=== PATIENT | male | born 1970 | race Caucasian/White ===

== ENCOUNTER → 2018-06-17 | Day surgery (SDC) | payer BC ==
[2018-06-16 15:53] LABS: EOSINOPHILS % 0.2 % (0.0-6.0); HEMATOCRIT 33.6 % (38.2-49.6); HEMOGLOBIN 10.6 g/dL (14.0-18.0); LYMPHOCYTES # (AUTO) 1.1 (1.0-3.2); LYMPHOCYTES % 20.5 % (18.0-39.1); MEAN CORPUSCULAR HEMOGLOBIN 27.4 pg (28-32); MEAN CORPUSCULAR HGB CONC 31.5 g/dL (31-35); MEAN CORPUSCULAR VOLUME 86.8 fL (81-99); MONOCYTES # (AUTO) 0.4 (0.2-0.8); MONOCYTES % 7.1 % (4.4-11.3); NEUTROPHILS # (AUTO) 3.9 (2.1-6.9); NEUTROPHILS % 71.8 % (38.7-80.0); PLATELET COUNT 162 x10e3/uL (140-360); RED BLOOD COUNT 3.87 x10e6/uL (4.3-5.7); RED CELL DISTRIBUTION WIDTH 14.5 % (11.7-14.4)
[2018-06-16 16:12] LABS: ALBUMIN 3.7 g/dL (3.5-5.0); ALBUMIN/GLOBULIN RATIO 1.1 (0.8-2.0); ANION GAP 14.6 mmol/L (8-16); CALCIUM 9.2 mg/dL (8.4-10.2); CREATININE, SERUM 3.89 mg/dL (0.72-1.25)
[2018-06-16 16:18] LABS: POTASSIUM 5.6 mmol/L (3.5-5.1)
[~2018-06-17] VITALS: Ht 180.3 cm; Wt 105.7 kg
[2018-06-17] VITALS (9 sets, daily range): BP systolic 131–149; BP diastolic 70–89
[~2018-06-17] MED LIST: ALPRAZOLAM 0.5 MG TAB ONE; ASPIR 8181 MG PO; CALCIUM500 MG; CALTRATE 600 W1 EACH PO; CLONIDINE HCL0.2 MG PO; CRESTOR20 MG PO; DILTIAZEM 24HR300 M2; DIPHENHYDRAMINE HCL 25 MG CAP ONE; EDARBI40 MG PO; FENTANYL CITRATE/PF 100MCG/2 ML INJ ONE; GLIMEPIRIDE2 MG PO; HEPARIN SOD/SOD CHLORIDE 2,000 ML ONE; IOPAMIDOL 370 MG/ML 200 ML INFUS..BTL INJ ONE; ISOSORBIDE MONO30 MG PO; LIDOCAINE HCL 2% LOCAL 20 ML VIAL ONE; METOPROLOL TART50 MG PO; MIDAZOLAM HCL 2 MG/2 ML VIAL ONE; NEORAL25 MG PO; ONE-A-DAY MEN'1 EAC2 PO; PREDNISONE5 MG PO; RAPAMUNE1 MG PO; SODIUM CHLORIDE 0.9% 1000ML 1,000 ML ONE; TRILIPIX135 MG PO; TRILIPIX45 MG; VACEPA PO; VITAMIN B-12100 MCG
--- NOTE | 2018-06-17 12:06 | NUR ---
1206pm Received Ambulatory Prepped in Room #8. Identiferx2. #20 Iv started to left arm no s/s infiltration.Preop meds (0.5 Xanax and 50mg Benadryl po given . Bilateral femoral sites prepped. Baseline Vs and PPx4 marked. Denies c/o at this time.Family at bedside Side rail up and call light at bedside.Bed in low position.Report to labor relations consultant personal. ds/rn
--- OUTSIDE RECORDS SUMMARY | 2018-06-17 12:28 | XMS REPORT ---
Author Author [facility] Address Unknown Phone Unavailable Care Team Providers Care Log Hooker Name Role Phone Renny ORELLANA Unavailable Unavailable Problems This patient has no known problems. Allergies, Adverse Reactions, Alerts This patient has no known allergies or adverse reactions. Medications This patient has no known medications. Results Test Description Test Time Test Comments Text Results Atomic Results Result Comments TISSUE EXAM 2017-07-22 10:25:00 Surgical Pathology Report Case: [id number] Authorizing Provider: Jude Orellana MD Collected: 07/16/2017 1203 Ord ering Location: [facility] Radiology Angio Received: 07/16/2017 1203 Pathologist: Feng Lee MD Specimen: Kidney KIDNEY ALLOGRAFT, NEEDLE CORE BIOPSIES (S/P RENAL TRANSPLANT IN 2007)- NO EVIDENCE OF ACUTE T-CELL OR ANTIBODY MEDIATED REJECTION- C4D NEGATIVE IN PERITUBULAR CAPILLARIES- PATCHY (STRIPED) INTERSTITIAL FIBROSIS AND TUBULAR ATROPHY, MODERATE TO SEVERE (IFTA, ~60%)- DIFFUSE AND NODULAR ARTERIOLAR HYALINOSIS- MILD ARTERIAL INTIMAL SCLEROSIS- SEE COMMENT Signing Pathologist Direct Phone Line: [phone] signed by Feng Lee MD on 07/22/2017 at 10:25 AMPreliminary result electronically signed by Feng Lee MD on 07/20/2017 at 1:09 PMPreliminary result electronically signed by Feng Lee MD on 07/16/2017 at 3:16 PMThe histological features are secondary to hypertension or chronic calcineurin inhibitor toxicity. No histological features indicative of chronic antibody mediated rejection are noted in this biopsy. Updated results were communicated to on 07/20/2017.26313, 11989 x3, 47223, [id number] labs, status post kidney transplant 01/2008.Transplant kidney biopsy The specimen is received in three containers all labeled with the patient's information and "transplant kidney biopsy".In formalin are two light story cores of soft tissue measuring 0.5 cm and 2.0 cm in length, entirely submitted in cassette A1.In saline is a 1.1 cm in length light story core of soft tissue which is frozen and entirely submitted for immunofluorescent studies. In glutaraldehyde is a 0.3 cm in length white- story core of soft tissue which is entirely submitted for EM studies. DB/bc LIGHT MICROSCOPY: Sections show two cores of renal cortical tissue and one core of medullary tissue. Glomeruli: Approximately 23 glomeruli are examined of which 4 is globally sclerotic. The remaining glomeruli have patent capillary loops. Focal glomerular congestion is seen. No endocapillary hypercellularity, crescents or thrombi are seen. No double contours of glomerular basement membranes are noted on Hoover or PAS stain. Tubules and interstitium: There is patchy striped interstitial fibrosis and tubular atrophy with associated chronic interstitial inflammation, involving about 60% of renal cortex. No tubulitis or peritubular capillaritis is noted. No viral inclusions are seen. Vessels: Branches of interlobular arteries show mild intimal sclerosis. There is diffuse and nodular arteriolar hyalinosis. No endothelialitis or transmural vasculitis is seen. Special stains: Imelda trichrome, PAS and Hoover silver stains were necessary for evaluation of this biopsy and showed expected staining patterns of internal control tissue matrix structures.IMMUNOFLUORESCENCEHistology: H&E- stained sections show cortex with 12 non-sclerotic and one globally sclerosed glomerulus. Indirect srzwvtuksbmjjszwdpM3w is negative in peritubular capillaries (appropriate mesangial staining present)ELECTRON MICROSCOPYToluidine blue- stained sections reveal 2 non-sclerotic and one globally sclerosed glomerulus. Two glomeruli are examined ultrastructurally.Ultrastructure: Examination of the glomerular ultrastructure reveals that the glomerular basement membrane is of normal thickness. No double contours are seen. The mesangial matrix is not expanded. Subendothelial, subepithelial, and mesangial/paramesangial electron-dense, immune complex-type deposits are not present. Podocyte foot processes are segmentally effaced. The peritubular capillaries show normal lamellations of 1-3 layers thick. U/S, BIOPSY, RENAL (KIDNEY) 2017-07-16 12:04:00 Reason for Exam:->Other specified abnormal findings of blood chemistry [R79.89] FINAL REPORT PROCEDURE: Ultrasound-guided nonfocal biopsy of transplant kidney. INDICATION: 47-year-old man with elevated creatinine. COMPARISON: Renal transplant ultrasound 03/13/2008. SEDATION: Intravenous moderate sedation was administered by radiology nursing and monitored under the direction of the undersigned radiologist. The patient's vital signs were monitored throughout the procedure and recorded in the patient's medical record by radiology nursing. Total intraservice time of sedation was 15 minutes. MEDICATIONS: 1 mg Versed, 50 mcg fentanyl FINDINGS:After obtaining informed written consent, the patient was placed in the supine position, and ultrasound scan identified an accessible window to the transplant kidney in the right lower quadrant. The overlying skin was prepped and draped in the usual, sterile fashion and local 1% lidocaine anesthesia was administered. Two core biopsies of the kidney were obtained using 18-gauge Biopince biopsy needle under ultrasound guidance. Pathology was present to confirm sample adequacy. Post procedure scans revealed no immediate complications. IMPRESSION: Uncomplicated ultrasound-guided nonfocal biopsy of the transplant kidney. Signed: Amy Pang MDReport Verified Date/Time: 07/16/2017 12:04:50 Reading Location: [address] Ultrasound Reading Room C METABOLIC PANEL 2017-07-16 09:53:00 SODIUM (BEAKER) (test wtzi=886) 142 meq/L 136-145 POTASSIUM (BEAKER) (test vuug=123) 4.6 meq/L 3.5-5.1 CHLORIDE (BEAKER) (test oalu=056) 109 meq/L 98-107 CO2 (BEAKER) (test pprb=448) 22 meq/L 22-29 BLOOD UREA NITROGEN (BEAKER) (test wzme=366) 33 mg/dL 7-21 CREATININE (BEAKER) (test woxk=582) 2.32 mg/dL 0.57-1.25 GLUCOSE RANDOM (BEAKER) (test mvst=749) 185 mg/dL 70-105 CALCIUM (BEAKER) (test igkt=587) 9.3 mg/dL 8.4-10.2 EGFR (BEAKER) (test qfzl=0897) 30 mL/min/1.73 sq m ESTIMATED GFR IS NOT ACCURATE CREATININE CLEARANCE IN PREDICTING GLOMERULAR FILTRATION RATE. ESTIMATED GFR IS NOT APPLICABLE FOR DIALYSIS PATIENTS. PROTHROMBIN TIME/[id number] 09:41:00* Test Item Value Reference Range Comments PROTIME (BEAKER) (test npwd=553) 14.5 seconds 11.7-14.7 INR (BEAKER) (test qqkz=025) 1.1 <=5.9 RECOMMENDED COUMADIN/WARFARIN INR THERAPY RANGESSTANDARD DOSE: 2.0 - 3.0 Inclu kadi: PROPHYLAXIS for venous thrombosis, systemic embolization; TREATMENT for mery ous thrombosis and/or pulmonary embolus.HIGH RISK: Target INR is 2.5-3.5 for pat ients with mechanical heart valves.CBC W/PLT COUNT & AUTO [id number] 09:33:00* Test Item Value Reference Range Comments WHITE BLOOD CELL COUNT (BEAKER) (test aqwz=129) 7.9 K/ L 3.5-10.5 RED BLOOD CELL COUNT (BEAKER) (test oigw=902) 4.32 M/ L 4.63-6.08 HEMOGLOBIN (BEAKER) (test qyvb=058) 12.2 GM/DL 13.7-17.5 HEMATOCRIT (BEAKER) (test crxr=397) 37.6 % 40.1-51.0 MEAN CORPUSCULAR VOLUME (BEAKER) (test rauc=371) 87.0 fL 79.0-92.2 MEAN CORPUSCULAR HEMOGLOBIN (BEAKER) (test vcgx=743) 28.2 pg 25.7-32.2 MEAN CORPUSCULAR HEMOGLOBIN CONC (BEAKER) (test kxbw=328) 32.4 GM/DL 32.3-36.5 RED CELL DISTRIBUTION WIDTH (BEAKER) (test nloq=498) 13.4 % 11.6-14.4 PLATELET COUNT (BEAKER) (test uigk=635) 161 K/CU MM 150-450 MEAN PLATELET VOLUME (BEAKER) (test brvf=542) 10.6 fL 9.4-12.4 NUCLEATED RED BLOOD CELLS (BEAKER) (test ccja=576) 0 /100 WBC 0-0 NEUTROPHILS RELATIVE PERCENT (BEAKER) (test yoeo=537) 63 % LYMPHOCYTES RELATIVE PERCENT (BEAKER) (test gxjo=333) 26 % MONOCYTES RELATIVE PERCENT (BEAKER) (test rmqn=280) 10 % EOSINOPHILS RELATIVE PERCENT (BEAKER) (test bdge=139) 1 % BASOPHILS RELATIVE PERCENT (BEAKER) (test splo=333) 0 % NEUTROPHILS ABSOLUTE COUNT (BEAKER) (test tsmk=875) 4.96 K/ L 1.78-5.38 LYMPHOCYTES ABSOLUTE COUNT (BEAKER) (test kryd=219) 2.02 K/ L 1.32-3.57 MONOCYTES ABSOLUTE COUNT (BEAKER) (test tivr=924) 0.76 K/ L 0.30-0.82 EOSINOPHILS ABSOLUTE COUNT (BEAKER) (test spli=931) 0.09 K/ L 0.04-0.54 BASOPHILS ABSOLUTE COUNT (BEAKER) (test rxnj=164) 0.01 K/ L 0.01-0.08 IMMATURE GRANULOCYTES-RELATIVE PERCENT (BEAKER) (test spea=8774) 1 % 0-1
--- OUTSIDE RECORDS SUMMARY | 2018-06-17 12:28 | XMS REPORT | Clinical Summary ---
Author Author [facility] Address Unknown Phone Unavailable Care Team Providers Care Automatic Machine Attendant Name Role Phone Feliciano Yancey PCP Allergies No Known Allergies Medications End Date Status Medication Sig Dispensed Refills Start Date Active cycloSPORINE modified Take 100 mg 0 (NEORAL) 100 MG capsule by mouth 2 (two) times daily. Active sirolimus (RAPAMUNE) 2 MG Take 2 mg by 0 tablet mouth daily. Active predniSONE (DELTASONE) 5 Take 5 mg by 0 MG tablet mouth daily. Active ranolazine (RANEXA) 500 Take 500 mg 0 MG 12 hr tablet by mouth 2 (two) times daily. Active cloNIDine HCl (CATAPRES) Take 0.2 mg 0 0.2 MG tablet by mouth 2 (two) times daily. Active metoprolol (LOPRESSOR) 50 Take 50 mg by 0 MG tablet mouth 2 (two) times daily. Active fenofibric acid, choline, Take 135 mg 0 135 mg capsule by mouth daily. Active rosuvastatin (CRESTOR) 40 Take 40 mg by 0 MG tablet mouth daily. Active isosorbide dinitrate Take 30 mg by 0 (ISORDIL) 30 MG tablet mouth daily. Active multivitamin capsule Take 1 0 capsule by mouth daily. Active cholecalciferol (VITAMIN Take 1,000 0 D3) 400 unit Tab tablet Units by mouth daily. Active aspirin 81 MG EC tablet Take 81 mg by 0 mouth daily. Active azilsartan medoxomil Take 40 mg by 0 (EDARBI) 40 mg Tab mouth daily. Active Problems Not on file Encounters Care Team Description Date Type Specialty Jude Cervantes MD Other specified abnormal findings of blood chemistry 07/16/2017 Hospital Encounter Jude Cervantes MD Other specified abnormal findings of blood chemistry (Primary Dx) 07/14/2017 Outside Orders Central Scheduling after 06/16/2017 Social History Date Tobacco Use Types Packs/Day Years Used Former Smoker Smokeless Tobacco: Never Used Alcohol Use Drinks/Week oz/Week Comments No Sex Assigned at Date Recorded Not on file Industry Job Start Date Occupation Not on file Not on file Not on file Travel End Travel History Travel Start No recent travel history available. Last Filed Vital Signs Time Taken Vital Sign Reading 07/16/2017 5:00 PM CDT Blood Pressure 142/86 07/16/2017 5:00 PM CDT Pulse 59 07/16/2017 10:55 AM CDT Temperature 36.3 C (97.4 F) 07/16/2017 5:00 PM CDT Respiratory Rate 16 07/16/2017 12:15 PM CDT Oxygen Saturation 98% - Inhaled Oxygen - Concentration 07/16/2017 9:39 AM CDT Weight 89.8 kg (197 lb 14.4 oz) 07/16/2017 9:39 AM CDT Height 175.3 cm (5' 9") 07/16/2017 9:39 AM CDT Body Mass Index 29.22 Plan of Treatment Health Maintenance Due Date Last Done Comments INFLUENZA VACCINE 01/03/2018 Procedures Comments Procedure Name Priority Date/Time Associated Diagnosis TISSUE EXAM AP Routine 07/16/2017 12:03 PM CDT US RENAL BIOPSY Routine 07/16/2017 Other specified abnormal 11:54 AM CDT findings of blood chemistry CBC W/PLT COUNT & AUTO STAT 07/16/2017 DIFFERENTIAL 9:17 AM CDT BASIC METABOLIC PANEL (7) STAT 07/16/2017 9:17 AM CDT CBC W/PLT COUNT & AUTO STAT 07/16/2017 DIFFERENTIAL 9:17 AM CDT PROTHROMBIN TIME/INR STAT 07/16/2017 9:17 AM CDT after 06/16/2017 Results * Tissue Exam (07/16/2017 12:03 PM CDT) Case Report Surgical Pathology [facility] Case: [id number] Authorizing Provider:Jude Cervantes, MDCollected: 07/16/2017 1203 Ordering Location: [facility] Radiology AngioReceived: 07/16/2017 1203 Pathologist: Feng Lee MD Specimen:Kidney DIAGNOSIS KIDNEY ALLOGRAFT, NEEDLE CORE [facility] BIOPSIES (S/P RENAL TRANSPLANT [facility] IN 2007) - NO EVIDENCE OF ACUTE T-CELL OR ANTIBODY MEDIATED REJECTION - C4D NEGATIVE IN PERITUBULAR CAPILLARIES - PATCHY (STRIPED) INTERSTITIAL FIBROSIS AND TUBULAR ATROPHY, MODERATE TO SEVERE (IFTA, ~60%) - DIFFUSE AND NODULAR ARTERIOLAR HYALINOSIS - MILD ARTERIAL INTIMAL SCLEROSIS - SEE COMMENT Signing Pathologist Direct Phone Line: [phone] COMMENT The histological features are [facility] secondary to hypertension or [facility] chronic calcineurin inhibitor toxicity. No histological features indicative of chronic antibody mediated rejection are noted in this biopsy. Updated results were communicated to on 07/20/2017. CPT Code(s) 51241, 38004 x3, 40779, 48076 [facility] CLINICAL HISTORY Abnormal labs, status post [facility] kidney transplant 01/2008. [facility] SPECIMEN SOURCE Transplant kidney biopsy [facility] GROSS DESCRIPTION The specimen is received in [facility] three containers all labeled [facility] with the patient's information and "transplant kidney biopsy". In formalin are two light story cores of soft tissue measuring 0.5 cm and 2.0 cm in length, entirely submitted in cassette A1. In saline is a 1.1 cm in length light story core of soft tissue which is frozen and entirely submitted for immunofluorescent studies. In glutaraldehyde is a 0.3 cm in length white-story core of soft tissue which is entirely submitted for EM studies. DB/bc MICROSCOPIC DESCRIPTION LIGHT MICROSCOPY: [facility] Sections show two cores of [facility] renal cortical tissue and one core of [...] staining patterns of internal control tissue matrix structures. IMMUNOFLUORESCENCE Histology: H&E-stained sections show cortex with 12 non-sclerotic and one globally sclerosed glomerulus. Indirect immunofluorescence C4d is negative in peritubular capillaries (appropriate mesangial staining present) ELECTRON MICROSCOPY Toluidine blue- stained sections reveal 2 non-sclerotic and one globally sclerosed glomerulus. Two glomeruli are examined ultrastructurally. Ultrastructure: Examination of the glomerular ultrastructure reveals that the glomerular basement membrane is of normal thickness. No double contours are seen. The mesangial matrix is not expanded. Subendothelial, subepithelial, and mesangial/paramesangial electron-dense, immune complex-type deposits are not present. Podocyte foot processes are segmentally effaced. The peritubular capillaries show normal lamellations of 1-3 layers thick. Specimen Tissue - Kidney Performing Organization Address City/State/Zipcode Phone Number [facility] [address] [place] [address] [facility] * Renal Biopsy (07/16/2017 11:54 AM CDT) Narrative Performed At FINAL REPORT epacube PROCEDURE: Ultrasound-guided nonfocal biopsy of transplant kidney. [...] MEDICATIONS: 1 mg Versed, 50 mcg fentanyl FINDINGS: After obtaining informed written consent, the patient was [...] of the transplant kidney. Signed: Amy Pang MD Report Verified Date/Time:07/16/2017 12:04:50 Reading Location: [address] Ultrasound Reading Room Procedure Note Interface, External Ris In - 07/16/2017 12:07 PM CDT FINAL REPORT PROCEDURE: Ultrasound-guided nonfocal biopsy of [...] MEDICATIONS: 1 mg Versed, 50 mcg fentanyl FINDINGS: After obtaining informed written consent, the patient was [...] of the transplant kidney. Signed: Amy Pang MD Report Verified Date/Time: 07/16/2017 12:04:50 Reading Location: [address] Ultrasound Reading Room Performing Organization Address City/State/Zipcode Phone Number [facility] * CBC with platelet count + automated diff (07/16/2017 9:17 AM CDT) WBC 7.9 3.5 - 10.5 K/L [facility] RBC 4.32 (L) 4.63 - 6.08 M/L [facility] Hemoglobin 12.2 (L) 13.7 - 17.5 GM/DL [facility] Hematocrit 37.6 (L) 40.1 - 51.0 % [facility] MCV 87.0 79.0 - 92.2 fL [facility] MCH 28.2 25.7 - 32.2 pg [facility] MCHC 32.4 32.3 - 36.5 GM/DL [facility] RDW 13.4 11.6 - 14.4 % [facility] Platelets 161 150 - 450 K/CU MM [facility] MPV 10.6 9.4 - 12.4 fL [facility] nRBC 0 0 - 0 /100 WBC [facility] % Neutros 63 % [facility] % Lymphs 26 % [facility] % Monos 10 % [facility] % Eos 1 % [facility] % Baso 0 % [facility] # Neutros 4.96 1.78 - 5.38 K/L [facility] # Lymphs 2.02 1.32 - 3.57 K/L [facility] # Monos 0.76 0.30 - 0.82 K/L [facility] # Eos 0.09 0.04 - 0.54 K/L [facility] # Baso 0.01 0.01 - 0.08 K/L [facility] Immature 1 0 - 1 % [facility] Granulocytes-[facility] Specimen Blood Performing Organization Address City/State/Zipcode Phone Number [facility] [address] [place] [address] [facility] * Prothrombin time/INR (07/16/2017 9:17 AM CDT) Protime 14.5 11.7 - 14.7 seconds [facility] INR 1.1 <=5.9 [facility] Specimen Blood Narrative Performed At RECOMMENDED COUMADIN/WARFARIN INR THERAPY RANGES [facility] STANDARD DOSE: 2.0 - 3.0 Includes: PROPHYLAXIS for venous thrombosis, [facility] systemic embolization; TREATMENT for venous thrombosis and/or pulmonary embolus. HIGH RISK: Target INR is 2.5-3.5 for patients with mechanical heart valves. Performing Organization Address City/State/Rustcode Phone Number [facility] [address] [place] [address] [facility] * Basic Metabolic Panel (07/16/2017 9:17 AM CDT) Sodium 142 136 - 145 meq/L [facility] Potassium 4.6 3.5 - 5.1 meq/L [facility] Chloride 109 (H) 98 - 107 meq/L [facility] CO2 22 22 - 29 meq/L [facility] BUN 33 (H) 7 - 21 mg/dL [facility] Creatinine 2.32 (H) 0.57 - 1.25 mg/dL [facility] Glucose 185 (H) 70 - 105 mg/dL [facility] Calcium 9.3 8.4 - 10.2 mg/dL [facility] EGFR 30Comment: ESTIMATED GFR IS mL/min/1.73 sq m [facility] NOT ACCURATE CREATININE [facility] CLEARANCE IN PREDICTING GLOMERULAR FILTRATION RATE. ESTIMATED GFR IS NOT APPLICABLE FOR DIALYSIS PATIENTS. Specimen Blood Performing Organization Address City/[facility]/Zipcode Phone Number [facility] [address] [place] [address] [facility] after 06/16/2017 Insurance Payer Benefit Subscriber ID Type Phone Address Plan / Group BLUE [employer] OS xxxxxxxxxxxx PPO [phone] [address] POS/PP[place] [address] O Advance Directives Patient has advance care planning documents, and code status on file. For more i nformation, please contact: [facility] [address] [place] [phone] Date Inactivated Comments Code Status Date Activated 07/16/2017 7:30 PM Full Code 07/16/2017 12:10 PM This code status was determined by: Patient
--- NOTE | 2018-06-17 17:00 | NUR ---
1700pm Received pt to Product Test Engineer recovery RM #10. [facility] Dr Clark ,Drowsy easily aroused. Maintains airway on room air Sats 100% no gross issues of pallor,pressure or dysrhythmia or pain. Iv infusing via controller at 250cchr for total 500cc to be infused. No s/s infiltration. Abdomen soft and non tender denies necessity to defecate or urinate. Bilateral PPx4 PT/DP.Rt groin site w/o CDI w/o s/s of bleeding. Tamika at bedside. Cell [phone]. Plan of care discussed with family. Copy of dc instructions given to family Denies co CP or SOB. ds/rn
--- NOTE | 2018-06-17 19:00 | NUR ---
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 Patient has discharge instructions aware of importance of f/o care. Iv removed w/o s/s infiltration Coban dressing in place. Denies c/o chest pain or SOB vs stable and EKG. ds/rn
--- NOTE | 2018-06-18 00:13 | Operative Report ---
DATE OF PROCEDURE: 06/17/2018 SURGEON: Jay Clark MD INDICATION: Coronary artery disease, abnormal stress test. PROCEDURES PERFORMED: 1. Left heart catheterization, selective coronary angiography. 2. Deployment of right groin Vascade closure device. COMPLICATIONS: None. RECOMMENDATIONS: Medical therapy. DESCRIPTION OF PROCEDURE: Access was obtained in the right femoral artery. A 6-Nicar[place]uan sheath was placed. Diagnostic coronary angiogram revealed patent left main, left anterior descending, and circumflex arteries had hipb-hm-xlgndegu 30%-50% stenosis. Diagonal artery 80% stenosis, 1.5-mm vessel. Right coronary artery is completely occluded. Grade 3/4 collaterals filled the right posterior descending artery from the left coronary system. LV end-diastolic pressure of 18. No gradient across the aortic valve on pullback. No intervention is deemed necessary. A total of 12 mL of contrast used. The right groin was repaired using Vascade closure device. The patient is discharged home on the same day. Jay Clark MD KSB/MODL /[id number]
== END | disposition home or self-care (01) ==
LOC: CATH LAB 12:10
PROVIDERS: ATTEND Internal Medicine Interventional Cardiology
DX: I25.119 Atherosclerotic heart disease of native coronary artery with unspecified angina pectoris (principal); I25.82 Chronic total occlusion of coronary artery; R94.39 Abnormal result of other cardiovascular function study; E11.22 Type 2 diabetes mellitus with diabetic chronic kidney disease; I13.0 Hypertensive heart and chronic kidney disease with heart failure and stage 1 through stage 4 chronic kidney disease, or unspecified chronic kidney disease; I50.9 Heart failure, unspecified; N18.3 Chronic kidney disease, stage 3 (moderate); R60.0 Localized edema; Z01.812 Encounter for preprocedural laboratory examination; Z68.32 Body mass index [BMI] 32.0-32.9, adult; Z94.0 Kidney transplant status; Z87.891 Personal history of nicotine dependence; Z82.49 Family history of ischemic heart disease and other diseases of the circulatory system; Z84.1 Family history of disorders of kidney and ureter
CPT/HCPCS: 36415 ×2; 80053; 82948; 85025; 93458; C1760; C1769; J2001; J2250; J7030; Q9967; 93454

== ENCOUNTER 2019-01-29 03:03 | Observation (INO) | payer BC ==
[~2019-01-29] VITALS: Ht 180.3 cm; Wt 93.5 kg
[2019-01-29] VITALS (8 sets, daily range): BP systolic 95–146; BP diastolic 51–96
[~2019-01-29 03:03] MED LIST changes: -ALPRAZOLAM 0.5 MG TAB ONE; -DIPHENHYDRAMINE HCL 25 MG CAP ONE; -FENTANYL CITRATE/PF 100MCG/2 ML INJ ONE; -HEPARIN SOD/SOD CHLORIDE 2,000 ML ONE; -IOPAMIDOL 370 MG/ML 200 ML INFUS..BTL INJ ONE; -LIDOCAINE HCL 2% LOCAL 20 ML VIAL ONE; -MIDAZOLAM HCL 2 MG/2 ML VIAL ONE; -SODIUM CHLORIDE 0.9% 1000ML 1,000 ML ONE
[2019-01-29 03:53] LABS: BASOPHILS % 0.2 % (0.0-1.0); EOSINOPHILS % 0.2 % (0.0-6.0); HEMATOCRIT 28.4 % (38.2-49.6); HEMOGLOBIN 8.9 g/dL (14.0-18.0); LYMPHOCYTES # (AUTO) 1.1 (1.0-3.2); LYMPHOCYTES % 21.1 % (18.0-39.1); MEAN CORPUSCULAR HGB CONC 31.3 g/dL (31-35); MEAN CORPUSCULAR VOLUME 92.5 fL (81-99); MONOCYTES # (AUTO) 0.6 (0.2-0.8); MONOCYTES % 11.5 % (4.4-11.3); NEUTROPHILS # (AUTO) 3.5 (2.1-6.9); NEUTROPHILS % 66.2 % (38.7-80.0); PLATELET COUNT 158 x10e3/uL (140-360); RED BLOOD COUNT 3.07 x10e6/uL (4.3-5.7); RED CELL DISTRIBUTION WIDTH 16.1 % (11.7-14.4)
--- NOTE | 2019-01-29 04:10 | Diagnostic Imaging Report ---
History:Dizziness and fell this morning Comparison studies:None Technique: Axial images were obtained from the skull base to the vertex. Coronal and sagittal images reconstructed from the axial data. Intravenous contrast: None Dose modulation, iterative reconstruction, and/or weight based adjustment of the mA/kV was utilized to reduce the radiation dose to as low as reasonably achievable. Findings: Scalp/skull: No abnormalities. Extra-axial spaces: No masses. No fluid collections. Brain sulci: Mildly prominent. Ventricles: Age-appropriate. No hydrocephalus. Parenchyma: Few hypodensities in the supratentorial white matter are small vessel ischemic changes. No masses, hemorrhage, acute or chronic cortical vascular insults. Sellar/suprasellar region: No abnormalities. Craniocervical junction: Patent foramen magnum. No Chiari one malformation. Incidental findings: Atherosclerotic calcifications in the carotid siphons . Impression: No acute abnormalities. . Signed by: DR Nirmal Gonsalez M.D. on 01/29/2019 4:07 AM
[2019-01-29 04:18] LABS: ALANINE AMINOTRANSFERASE 17 IU/L (0-55); ALBUMIN 3.2 g/dL (3.5-5.0); ALBUMIN/GLOBULIN RATIO 1.1 (0.8-2.0); ALKALINE PHOSPHATASE 73 IU/L (40-150); ANION GAP 20.7 mmol/L (8-16); BLOOD UREA NITROGEN 25 mg/dL (7-26); BUN/CREATININE RATIO 4 (6-25); CALCIUM 9.9 mg/dL (8.4-10.2); CARBON DIOXIDE 23 mmol/L (22-29); CHLORIDE 96 mmol/L (98-107); CREATINE KINASE 46 IU/L (30-200); CREATININE, SERUM 5.99 mg/dL (0.72-1.25); EST GLOMERULAR FILTRATION RATE 10 ML/MIN (60-); GLUCOSE 323 mg/dL (74-118); POTASSIUM 3.7 mmol/L (3.5-5.1); SODIUM 136 mmol/L (136-145)
[2019-01-29] MEDS ORDERED: ASPIRIN 81 MG CHEW TAB PO ONE (04:30)
[2019-01-29 05:30] LABS: BILIRUBIN,URINE MODERATE (NEGATIVE); CLARITY,URINE SL CLOUDY (CLEAR); COLOR,URINE YELLOW (YELLOW); KETONES,URINE TRACE (NEGATIVE); LEUKOCYTE ESTERASE ,URINE TRACE (NEGATIVE); NITRITE,URINE NEGATIVE (NEGATIVE); PROTEIN,URINE DIPSTICK 2+ (NEGATIVE); URINE UROBILINOGEN 0.2 mg/dL (0.2 - 1)
[2019-01-29 05:51] LABS: BACTERIA,URINE FEW /HPF; EPITHELIAL CELLS,URINE RARE /LPF; MUCUS,URINE FEW (RARE)
--- OUTSIDE RECORDS SUMMARY | 2019-01-29 05:58 | XMS REPORT ---
Author Author [facility] Address Unknown Phone Unavailable Care Team Providers Care Senior Training And Development Rep Name Role Phone Latrell EVANS Unavailable Unavailable Problems This patient has no known problems. Allergies, Adverse Reactions, Alerts This patient has no known allergies or adverse reactions. Medications This patient has no known medications. Results Test Description Test Time Test Comments Text Results Atomic Results Result Comments CT BRAIN WO 2019-01-29 04:04:00 [facility] [address] [place] [address] Patient Name: XIAO LO MR #: [id number] : 1970 Age/Sex: 48/M Req #: [id number] Adm Physician: Ordered by: LEON EVANS MD Report #: [id number] Location: ER Room/Bed: Procedure: [id number] CT/CT BRAIN WO Exam Date: 01/29/19 Exam Time: 0340 REPORT STATUS: Signed History:Dizziness and fell this morning Comparison studies: None Technique: Axial images were obtained from the skull base to the vertex. Coronal and sagittal images reconstructed from the axial data. Intravenous contrast: None Dose modulation, iterative reconstruction, and/or weight based adjustment of the mA/kV was utilized to reduce the radiation dose to as low as reasonably achievable. Findings: Scalp/skull: No abnormalities. Extra-axial spaces: No masses. No fluid collections. Brain sulci: Mildly prominent. Ventricles: Age-appropriate. No hydrocephalus. Parenchyma: Few hypodensities in the supratentorial white matter are small vessel ischemic changes. No masses, hemorrhage, acute or chronic cortical vascular insults. Sellar/suprasellar region: No abnormalities. Craniocervical junction: Patent foramen magnum. No Chiari one malformation. Incidental findings: Atherosclerotic calcifications in the carotid siphons . Impression: No acute abnormalities. . Signed by: DR Nirmal Gonsalez M.D. on 01/29/2019 4:07 AM Dictated By: NIRMAL STREETER MD 6 Transcribed By: BRANDEE on 01/29/19406 COPY TO: LEON EVANS MD
--- NOTE | 2019-01-29 06:11 | Diagnostic Imaging Report ---
EXAMINATION: CHEST SINGLE (PORTABLE) INDICATION: Syncope COMPARISON: Chest radiograph 06/03/2012 FINDINGS: AP view TUBES and LINES: Right IJ central venous catheter, tip in the low SVC.. LUNGS: Lungs are well inflated. Lungs are clear. There is no evidence of pneumonia or pulmonary edema. PLEURA: No pleural effusion or pneumothorax. HEART AND MEDIASTINUM: The cardiomediastinal silhouette is unremarkable. BONES AND SOFT TISSUES: No acute osseous lesion. Soft tissues are unremarkable. UPPER ABDOMEN: No free air under the diaphragm. IMPRESSION: No acute thoracic radiographic abnormality. Signed by: Murray Brito DO on 01/29/2019 6:08 AM
--- NOTE | 2019-01-29 07:07 | NUR ---
PER DR. EVANS, SHE WANTS TO GIVE 6 UNITS OF REGULAR INSULIN FOR BLOOD SUGAR [address] ARRIVES. DR. MCGUIRE TO PUT IN FLOOR ORDERS BEDSIDE REPORT COMPLETED
[2019-01-29] MEDS ORDERED: INSULIN REGULAR, HUMAN 100 UNIT/1 ML 3ML VIAL SQ ONE (07:15)
[2019-01-29] MEDS ORDERED: LABETALOL HCL200 MG PO (07:33)
[2019-01-29] MEDS ORDERED: MULTIPLE VITAM1 EAC2 PO (07:33)
[2019-01-29] MEDS ORDERED: RENAGEL800 MG PO (07:33)
[2019-01-29] MEDS ORDERED: MYCOPHENOLATE250 MG PO (07:33)
[2019-01-29] MEDS ORDERED: RANEXA500 MG PO (07:33)
[2019-01-29] MEDS ORDERED: PANTOPRAZOLE SO40 MG PO (07:33)
[2019-01-29] MEDS ORDERED: CLONIDINE HCL0.2 MG PO (07:33)
[2019-01-29] MEDS ORDERED: CLONIDINE HCL 0.2 MG TAB PO SCH (09:00)
[2019-01-29] MEDS ORDERED: ISOSORBIDE MONONITRATE 30 MG TAB CR PO SCH (09:00)
[2019-01-29] MEDS ORDERED: RANOLAZINE 500 MG TABSR PO SCH (09:00)
[2019-01-29] MEDS ORDERED: METOPROLOL TARTRATE 50 MG TAB PO SCH (09:00)
--- NOTE | 2019-01-29 09:09 | NUR ---
Notified of consult
[2019-01-29 09:13] LABS: CHOL/HDL RATIO 6.5 (3.9-4.7)
[2019-01-29] MEDS ORDERED: ACETAMINOPHEN 325 MG TAB PO PRN (09:15)
[2019-01-29] MEDS ORDERED: HYDRALAZINE HCL 20 MG/ML VIAL IV PRN (09:15)
[2019-01-29] MEDS ORDERED: ONDANSETRON HCL INJ 2MG/ML 2ML 2 MG/ML VIAL IV PRN (09:15)
[2019-01-29] MEDS ORDERED: DEXTROSE 50% SYRINGE 50 ML IV PRN (09:15)
[2019-01-29] MEDS ORDERED: ACETAMINOPHEN/CODEINE 300MG - 30MG TAB PO PRN (09:15)
[2019-01-29] MEDS: MYCOPHENOLATE MOFETIL 250 MG CAP PO SCH (09:51)
[2019-01-29] MEDS: PREDNISONE 5 MG TAB PO SCH (09:52)
[2019-01-29] MEDS: ASPIRIN 81 MG CHEW TAB PO SCH (09:53)
[2019-01-29 10:25] LABS: EOSINOPHILS % 0.5 % (0.0-6.0); HEMATOCRIT 26.9 % (38.2-49.6); HEMOGLOBIN 8.6 g/dL (14.0-18.0); LYMPHOCYTES % 24.6 % (18.0-39.1); MEAN CORPUSCULAR HEMOGLOBIN 29.5 pg (28-32); MEAN CORPUSCULAR VOLUME 92.1 fL (81-99); MONOCYTES # (AUTO) 0.4 (0.2-0.8); MONOCYTES % 10.7 % (4.4-11.3); NEUTROPHILS # (AUTO) 2.6 (2.1-6.9); NEUTROPHILS % 63.5 % (38.7-80.0); PLATELET COUNT 118 x10e3/uL (140-360); RED BLOOD COUNT 2.92 x10e6/uL (4.3-5.7)
[2019-01-29 10:42] LABS: ANION GAP 20.7 mmol/L (8-16); CALCIUM 8.9 mg/dL (8.4-10.2); CREATININE, SERUM 5.99 mg/dL (0.72-1.25); POTASSIUM 3.7 mmol/L (3.5-5.1)
[2019-01-29 10:57] LABS: CREATINE KINASE 52 IU/L (30-200)
[2019-01-29] MEDS: SEVELAMER CARBONATE 800 MG TAB PO SCH ×2 (12:22→17:14)
[2019-01-29] MEDS: INSULIN REGULAR, HUMAN 100 UNIT/1 ML 3ML VIAL SQ SCH ×3 (12:36→20:52)
--- NOTE | 2019-01-29 12:59 | Consultation ---
DATE OF CONSULTATION: 01/29/2019 Nephrology Consultation Note REASON FOR CONSULTATION: Acute kidney injury requiring dialysis for about a month. REFERRING PHYSICIAN: ER physician. HISTORY OF PRESENT ILLNESS: This is a pleasant 48-year-old white gentleman with past medical history of living related renal transplant about 11 years ago. He developed acute kidney injury of unclear etiology status post biopsy. He did not require any dialysis when he developed kidney injury initially. His transplant was working well until about a month ago and he developed acute kidney injury again and on dialysis through right chest Permacath on a Wednesday, Wednesday, Wednesday schedule, the last dialysis 2 ago (he is Dr. Cervantes's patient). He was admitted with syncope after he passed out in the bathroom. At the time of my examination, he appeared in no acute distress and denied any headache, blurry vision, nausea, vomiting, chest pain, shortness of breath, cough, phlegm, fever, chills, abdominal pain, diarrhea, urinary problems, skin rash, joint pains, or any focal weakness. PAST MEDICAL HISTORY: As above. He is still on mycophenolate, Prograf, and prednisone since he continues to some urine. MEDICATIONS: See the medication sheet that was reviewed. He is on mycophenolate, Prograf, and prednisone among other medications. PERSONAL AND SOCIAL HISTORY: No history of alcohol or tobacco. PHYSICAL EXAMINATION: VITAL SIGNS: Blood pressure 146/70, respirations 18, heart rate 63, temperature 96.7. HEENT: Head was atraumatic, normocephalic. Pupils are reactive to light. Mouth, oral mucosa was moist. NECK: Supple. CHEST: Revealed fair air entry. HEART: S1 and S2. ABDOMEN: Soft. Bowel sounds are positive. EXTREMITIES: No edema. POCKETBOOK MAKER: He was awake and alert, and oriented x3. Cranial nerves are intact. There are no gross motor deficits noted. LABORATORY DATA: Chest x-ray was negative. CT of the brain was negative. White cell count 5.2, hemoglobin 8.9, hematocrit 28.4, platelets 158. Sodium 136, potassium 3.7, chloride 96, CO2 of 23, BUN 25, creatinine 5.99, glucose 323, albumin 3.2. Urinalysis, specific gravity more than 1.030, protein 2+, 6-10 wbc's, 6-10 rbc's. IMPRESSION: 1. Acute kidney injury requiring hemodialysis on a Wednesday, Wednesday, Wednesday schedule through right chest Permacath with no evidence of volume overload or hyperkalemia at the present time. 2. Anemia secondary to kidney disease. 3. Status post living donor kidney transplant, still on immunosuppressive medication. PLAN: Strict I's and O's. Hepatitis surface antigen, CBC, BMP in a.m. no acute indication for dialysis at the present time, but he will be scheduled for dialysis tomorrow. Workup for syncope underway. Continue present immunosuppressive medications. Thank you for the consultation. Jaxon Perez MD SA/MODL /[id number]
--- NOTE | 2019-01-29 13:59 | Consultation ---
DATE OF CONSULTATION: 01/29/2019 Neurology Consultation. HISTORY OF PRESENT ILLNESS: Mr. Alvarez is a 48-year-old right-hand dominant man with past medical history significant for hypertension, coronary artery disease, and end-stage renal disease, admitted to [facility] as an inpatient on January 29, 2019, with syncope versus seizure. A Neurology consultation is requested to evaluate for syncope versus seizure. At approximately 0300 on the day of admission, Mr. Alvarez was standing in his bathroom, attempting to urinate, when he experienced a sudden onset of dizziness, which is further described as a lightheaded sensation. Before he was able to sit, Mr. Alvarez fell to the ground. However, his head remained elevated on the small trash can. The patient's awoke upon hearing him fall and immediately went to the bathroom. Upon her arrival in the bathroom, she observed jerking movements of the arms and legs. These movements were not rhythmic. According to the patient's , the movements looked more like muscle spasms, which the patient has experienced with increasing frequency over the past several weeks. After approximately 2 minutes, Mr. Alvarez regained consciousness. While unconscious, there was no tongue biting or bladder/bowel incontinence. Upon regaining consciousness, Mr. Alvarez was not postictal. He does not report a headache, arthralgias, myalgias, bruises, or abrasions. Once the patient regained consciousness, he was brought to the emergency center at [facility] for further evaluation of his symptoms. The patient was subsequently admitted to [facility] as an inpatient for further evaluation and treatment. Mr. Alvarez does report experiencing a similar episode on 01/27/2019. According to the patient, he had completed dialysis. As he stood from the chair, he became lightheaded and fell to the ground. Unlike the episode on the morning of admission, the patient regained consciousness almost immediately after falling to the ground. Mr. Alvarez does not report a known history of febrile seizures. There is no family history of epilepsy or seizure disorders. The patient does not report a prior history of head trauma or meningitis/encephalitis. REVIEW OF SYSTEMS: Questionable seizure, syncope, dizziness, which is further described as lightheadedness, and muscle spasms. Otherwise, a 12-point review of systems is negative. PAST MEDICAL HISTORY: Hypertension, coronary artery disease, end-stage renal disease on hemodialysis Mondays, Wednesdays, and Fridays, gastroesophageal reflux disease. PAST SURGICAL HISTORY: Renal transplant, cardiac catheterization x2, Port-A-Cath placement. PAST HOSPITALIZATIONS: Surgeries/procedures as listed. FAMILY MEDICAL HISTORY: The patient's father is alive. He has hypertension and borderline diabetes mellitus. Mr. Alvarez's mother is . Her medical history is unknown. Mr. Alvarez has several siblings who are alive and healthy. SOCIAL HISTORY: Mr. Alvarez is . 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 The patient does report a prior history of tobacco use, but quit smoking cigarettes approximately 1-1/2 years ago. The patient does report occasional alcohol use. There is no reported current or prior recreational drug use. HOME MEDICATIONS: Aspirin 81 mg by mouth daily, clonidine 0.2 mg by mouth twice daily, isosorbide mononitrate 30 mg by mouth daily, labetalol 200 mg by mouth twice daily, metoprolol 50 mg by mouth twice daily, multivitamin one tablet by mouth daily, mycophenolate mofetil 750 mg by mouth daily, Protonix 40 mg by mouth daily, prednisone 5 mg by mouth daily, Ranexa 1000 mg by mouth twice daily, Renagel 800 mg three capsules by mouth 3 times daily, Vascepa 1 g by mouth once. HOSPITAL MEDICATIONS: Tylenol, Tylenol No. #3, aspirin, clonidine, Pepcid, hydralazine, Humulin R, Imdur, Lopressor, CellCept, Zofran, prednisone, Ranexa, and Renvela. ALLERGIES: NO KNOWN DRUG ALLERGIES. NO KNOWN FOOD ALLERGIES. NO KNOWN ALLERGIES TO LATEX. NO KNOWN ALLERGIES TO IODINE OR OTHER CONTRAST MATERIALS. PHYSICAL EXAMINATION: VITAL SIGNS: Height 71 inches, weight 203 pounds, BMI 28.3 kg/m2, blood pressure 143/70 mmHg, pulse 63 beats per minute, respiratory rate 18 breaths per minute, and oxygen saturation 98% on room air. GENERAL: The patient is awake and alert, does not appear distressed. Overweight. HEENT: Normocephalic, atraumatic. Pupils are equal, round, and reactive to light. Moist mucous membranes. NECK: Supple. No appreciable thyromegaly. No appreciable carotid bruits. CARDIOVASCULAR: S1, S2, regular rate and rhythm. No murmurs, rubs, or gallops. RESPIRATORY: Clear to auscultation bilaterally. No wheezes, rhonchi, or rales. EXTREMITIES: The skin is warm and dry. No clubbing, cyanosis, or edema. The posterior tibial and dorsalis pedis pulses are 1+ and symmetric. SKIN: No rashes or lesions. NEUROLOGIC: Memory/Attention: The patient is awake and alert, oriented to person, place, time, and situation. Cranial Nerves: Cranial nerve 1 - not tested. Cranial nerve 2, 3, 4, and 6 - pupils are equal and round, react briskly to light (from 4 mm to 2 mm). Extraocular movements intact. No nystagmus. Cranial nerve 5 - sensation to light touch and pinprick is intact in the bilateral V1 through V3 distributions. Strength in the temporalis and masseter muscles is within normal limits. Cranial nerve 7 - the face is symmetric as are all facial movements. Strength is within normal limits. Cranial nerve 8 - hearing is diminished to finger rub on the left. Cranial nerve 9, 10 - the soft palate elevates equally and symmetrically. Cranial nerve 11 - normal strength of the bilateral sternocleidomastoid and trapezius muscles. Cranial nerve 12 - the tongue protrudes midline and moves symmetrically from pies-wv-jegc. Strength: Bulk is normal. Strength is 5/5 in the bilateral deltoids, biceps, triceps, wrist flexors and extensors, finger flexors and extensors, intrinsic hand muscles, hip flexors, knee flexors and extensors, ankle dorsiflexion and plantar flexion, and intrinsic foot muscles. Tone is normal. DTRs: Deep tendon reflexes are 1+ and symmetric at the triceps and biceps. Deep tendon reflexes are trace and symmetric at the brachioradialis. Deep tendon reflexes are absent and symmetric at the patellas and Achilles. Plantar responses are flexor bilaterally. Sensation: Sensation is intact to light touch and pinprick in both arms and both legs. Cerebellar: Euwccw-cvhd-tgwzzd and heel-trujillo movements are intact without dysmetria or other impairment. Gait: Deferred. Speech: Spontaneous speech is normal without appreciable dysarthria or aphasia. Repetition is intact. Involuntary movements: None. Pronator Drift: None. LABORATORY DATA: The most recent basic metabolic panel is significant for sodium of 135, chloride of 95, anion gap of 20.7, creatinine of 5.99, estimated GFR of 10, and glucose of 296. A liver function panel collected earlier today significant for a total protein of 6.0 and albumin of 3.2. Cardiac enzymes are negative x2. Hemoglobin A1c 7.6. Total cholesterol 246, triglycerides 381, LDL cholesterol 132, and HDL cholesterol 38. The CBC with differential and platelets, significant for white blood cell count of 4.03 with a normal differential. The hemoglobin and hematocrit are 8.6 and 26.9, respectively. The platelet count is 118. Urinalysis reveals slightly cloudy urine with a specific gravity of greater than 1.030, 2+ protein, trace ketones, trace blood, moderate bilirubin, trace leukocyte esterase, 6-10 red blood cells, 6-10 white blood cells, rare urine epithelial cells with few urine bacteria. Hepatitis B surface antigen is pending. DIAGNOSTIC STUDIES: Electrocardiogram 01/29/2019: Normal sinus rhythm at 65 beats per minute. Chest x-ray 01/29/2019: No acute thoracic radiographic abnormality. A CT of the brain without contrast 01/29/2019: On my review, there is no evidence of recent or remote large territorial ischemia, hemorrhage, mass, or mass effect. Cerebral volumes are appropriate for age. There are findings compatible with mild chronic small vessel ischemic disease. Bilateral carotid artery ultrasound with Doppler 01/29/2019: There is atherosclerosis without hemodynamically significant stenosis in the bilateral internal carotid arteries. ASSESSMENT AND PLAN: Mr. Alvarez is a 48-year-old right-hand dominant man with past medical history as detailed admitted to [facility] as an inpatient on January 29, 2019, with syncope versus seizure. The patient's neurological examination is nonfocal. His laboratory data and other diagnostic studies have been reviewed and are documented above. In my opinion, it is unlikely the recent episodes described in the history of present illness represent seizure activity. More likely, the episode experienced on the morning of admission was convulsive syncope due to insufficient blood flow to the brain. As detailed in the history of present illness, the patient did fall to the ground upon loss of consciousness, but his head remained propped above his body leading to the subsequent activity described in history of present illness. However, due to the concerns of the patient's family as well as the primary service, further evaluation will be pursued to exclude a diagnosis of seizure. RECOMMENDATIONS: 1. An MRI of the brain without contrast has been ordered and is pending. 2. A routine EEG will be ordered. 3. Defer treatment of the remaining medical comorbidities to the primary and other services following the patient. 4. In my opinion, Mr. Alvarez will likely be discharged to home within 1-2 days. Thank you for this consultation. I will continue to follow the patient while he remains in the hospital. TIME SPENT: 70 minutes. Anni Chaves MD CP/YUIMKO /[id number] MTDD
--- NOTE | 2019-01-29 14:49 | Consultation ---
DATE OF CONSULTATION: Cardiology Consultation. REASON FOR THE CONSULTATION: Syncope episode. CONSULTING PHYSICIAN: Devaughn Blue MD. HISTORY OF PRESENT ILLNESS: Mr. Alvarez is a 48-year-old male, who is well known to our practice and was recently seen at the beginning of January. He reports that he came into the ER after he suffered two syncope episodes. He reports that the first syncope episode occurred on Wednesday after he was done with the course of dialysis and he is too deep and lost consciousness. He believes he was unaware of his surroundings for about 2-3 minutes. However, he was able to get himself up and get himself back to the chair. He had a second episode that occurred yesterday while he was standing up and urinating. His witnessed this one and lasted around the same time. He reports that he has been noticing more dizziness episode since he restarted dialysis. He has a pertinent past medical history of a kidney transplant in 2007, the donor being with his and unfortunately that kidney recently filled. Now, he is requiring dialysis. He is under the care of [employer] Operator, Dr. Helen landeros and has been going to dialysis since the 16/12/2018 on a frequency of Wednesday, Wednesday, and Wednesday. He also reports abdominal pain that is burning in nature in his periumbilical area that only occurs when he is walking and resolves when he stops walking. He also has a pertinent past medical history of coronary artery disease with a recent heart catheterization in June 2018 and is known to have chronic total occlusion to his RCA with 3-4 grade collaterals. He did not require any intervention at that time. He denies any fever, chills, dysuria, or generalized abdominal pain. REVIEW OF SYSTEMS: Negative except as mentioned above. PAST MEDICAL HISTORY: As mentioned above. PAST SURGICAL HISTORY: Kidney transplant in 2007, left heart catheterization in June 2018. PHYSICAL EXAMINATION: VITAL SIGNS: Temperature 96.7, pulse 63, respiratory rate 18, blood pressure 143/70, oxygen saturation 98% on room air. GENERAL: Alert and oriented x3. Resting comfortably in bed. and daughter at the bedside. Does not appear to be in any distress at this time. NECK: Supple. No JVD or carotid bruits noted. LUNGS: Diminished breath sounds throughout. No wheezing. No rhonchi or crackles. CARDIOVASCULAR: Regular rate and rhythm. Normal S1, S2. No murmurs, no gallops. ABDOMEN: Soft, nontender. Normoactive bowel sounds. EXTREMITIES: Lower extremity, no edema. CARDIOVASCULAR MEDICATIONS: Aspirin 81 mg p.o. daily, metoprolol 50 p.o. b.i.d., isosorbide 30 p.o. daily, clonidine 0.2 p.o. b.i.d., Ranexa 1000 mg p.o. b.i.d. LABORATORY DATA: WBC 4.03, hemoglobin 8.6, hematocrit 26.9, and platelets 118. Sodium 135, potassium 3.7, BUN 26, creatinine 5.99, and GFR is 10. Troponin less than 0.005. Total cholesterol 246, LDL 132, and HDL 38. Chest x-ray with no acute thoracic abnormalities. A CT of the brain with no acute abnormalities. IMPRESSION: 1. Orthostatic hypotension. 2. Syncope episode, orthostatic in nature. 3. Coronary artery disease. 4. End-stage renal disease, currently on hemodialysis. 5. Kidney transplant. RECOMMENDATIONS: 1. Orthostatic blood pressure is positive. We will discontinue antihypertensives at this time. We will continue to monitor the patient off this medications. Orthostatic blood pressures daily. 2. Nephrology has been consulted and managing volume status. Fifty instructions given to the patient. Repeat carotid Doppler this morning and also an echocardiogram. The patient had a recent cardiovascular evaluation in the office in June 2018. Continue anti-rejection drugs and the rest of the above-listed cardiac medications. We will continue to follow this patient very closely. Thank you for this consultation. Dictated by Marcy Madden NP MD EDWARD RehmanV/MITCHELLL /[id number]
[2019-01-29] MEDS: FAMOTIDINE 20 MG TAB PO SCH (17:14)
[2019-01-29] MEDS: METOPROLOL TARTRATE 50 MG TAB PO SCH (17:14)
--- NOTE | 2019-01-29 17:17 | NUR ---
Spoke with Luiza with [facility] answering service to notify of new HD patient
[2019-01-29] MEDS: BACLOFEN 10 MG TAB PO PRN (18:46)
--- NOTE | 2019-01-29 19:10 | NUR ---
Report given to oncoming nurse of patient's status. Resting in bed. No s/s of acute distress noted. Side rails upx2, call light within reach, family at bedside.
[2019-01-29 19:55] LABS: CREATINE KINASE MB 1.5 ng/mL (0-4.3)
[2019-01-30] VITALS (12 sets, daily range): BP systolic 95–163; BP diastolic 62–93
[2019-01-30 06:30] LABS: BASOPHILS % 0.2 % (0.0-1.0); EOSINOPHILS % 0.2 % (0.0-6.0); HEMATOCRIT 28.2 % (38.2-49.6); HEMOGLOBIN 8.7 g/dL (14.0-18.0); LYMPHOCYTES # (AUTO) 1.1 (1.0-3.2); LYMPHOCYTES % 24.2 % (18.0-39.1); MEAN CORPUSCULAR HGB CONC 30.9 g/dL (31-35); MONOCYTES # (AUTO) 0.4 (0.2-0.8); MONOCYTES % 8.4 % (4.4-11.3); NEUTROPHILS % 66.1 % (38.7-80.0); PLATELET COUNT 133 x10e3/uL (140-360); RED CELL DISTRIBUTION WIDTH 15.6 % (11.7-14.4)
[2019-01-30 06:48] LABS: ANION GAP 18.9 mmol/L (8-16); CREATININE, SERUM 6.62 mg/dL (0.72-1.25); POTASSIUM 3.9 mmol/L (3.5-5.1)
--- NOTE | 2019-01-30 07:00 | NUR ---
RECEIVED PATIENT RESTING IN BED NO S/S OF DISTRESS. BED LOW, WHEELS LOCKED, SIDE RAILS X2. CALL LIGHT IN REACH WILL CONTINUE TO MONITOR PATIENT.
[2019-01-30] MEDS: INSULIN REGULAR, HUMAN 100 UNIT/1 ML 3ML VIAL SQ SCH ×4 (07:30→20:20)
[2019-01-30] MEDS: METOPROLOL TARTRATE 50 MG TAB PO SCH ×2 (08:56→17:53)
[2019-01-30] MEDS: ASPIRIN 81 MG CHEW TAB PO SCH (09:06)
[2019-01-30] MEDS: PREDNISONE 5 MG TAB PO SCH (09:06)
[2019-01-30] MEDS: MYCOPHENOLATE MOFETIL 250 MG CAP PO SCH (09:06)
[2019-01-30] MEDS: FAMOTIDINE 20 MG TAB PO SCH ×2 (09:06→17:50)
[2019-01-30] MEDS: SEVELAMER CARBONATE 800 MG TAB PO SCH ×3 (09:06→17:50)
[2019-01-30] MEDS ORDERED: METOPROLOL TART50 MG PO (10:15)
[2019-01-30] MEDS ORDERED: SODIUM CHLORIDE 0.9% 1000ML 2,000 ML ONE (11:18)
--- NOTE | 2019-01-30 13:40 | Consultation ---
DATE OF CONSULTATION: 01/29/2019 Nephrology Consultation Note REASON FOR CONSULTATION: ESRD. REFERRING PHYSICIAN: ER physician. HISTORY OF PRESENT ILLNESS: This is a pleasant 48-year-old White gentleman with a past medical history of ESRD, on hemodialysis on Wednesday, Wednesday, and Wednesday schedule through [facility] PermCath with last dialysis two days ago, patient of Dr. Cervantes, status post right chest PermCath placement, history of COPD, coronary artery disease, history of rheumatic fever, hyperlipidemia, status post pacemaker/AICD DICTATION ENDS HERE Jaxon Perez MD SA/YUMIKO /[id number]
--- NOTE | 2019-01-30 14:00 | NUR ---
PATIENT A/O X3, EVEN RESPIRATIONS ON RA. LUNG SOUNDS CLEAR TO AUSCULTATION. TELEMETRY #16 SR. LEFT HAND 20 GAUGE IV SL. PATIENT AMBULATES INDEPENDENTLY. NO PAIN AT THIS TIME. PATIENT GETTING DIALYSIS AT THIS TIME. CALL LIGHT IN REACH WILL CONTINUE TO MONITOR PATIENT.
--- NOTE | 2019-01-30 16:44 | NUR ---
3L REMOVED WITH DIALYSIS. PATIENT TOLERATED WELL.
--- NOTE | 2019-01-30 18:20 | Diagnostic Imaging Report ---
EXAMINATION: MRI of the brain without contrast. HISTORY: Syncopal episode with loss of consciousness and collapse. Questionable seizure activity, weakness. COMPARISON: Head CT 01/29/2019 TECHNIQUE: Sagittal T2; axial DWI, T2, FLAIR, T1-IR, T2 gradient echo; coronal FLAIR. FINDINGS: Parenchyma: 1. Few scattered diverticula. Hyperintense foci, most likely nonspecific chronic microvascular ischemic changes. 2. No mass, hemorrhage, acute or chronic infarcts. Skull: Unremarkable. Vessels: Expected flow voids present in the major arteries and dural sinuses. Extra-axial spaces: No abnormal signal intensity or mass effect. Brain volume: Within normal limits for age. Ventricles: No hydrocephalus or displacement. Foramen magnum: Unremarkable. Sella: Unremarkable. Paranasal / mastoid sinuses: Prominent retention cyst in the left maxillary sinus. IMPRESSION: 1. No acute infarcts. 2. Mild chronic microvascular ischemic changes. Signed by: Dr. Umu Diaz M.D. on 01/30/2019 6:17 PM
--- NOTE | 2019-01-30 19:32 | Progress Note ---
DATE: 01/30/2019 Cardiology Progress Note SUBJECTIVE: The patient denies chest pain or shortness of breath. OBJECTIVE: VITAL SIGNS: Temperature 98.1 degrees, pulse 77, respiratory rate 19, blood pressure 144/82, and oxygen saturation 98% on room air. GENERAL: Awake, alert, in no acute distress. LUNGS: Clear to auscultation bilaterally. No wheezes or crackles. CARDIOVASCULAR: Normal rate, regular rhythm. No murmur. Normal S1, S2. ABDOMEN: Soft, nontender. EXTREMITIES: No edema. CARDIAC MEDICATIONS: Metoprolol 25 mg p.o. b.i.d., aspirin 81 mg p.o. daily. LABORATORY DATA: WBC 4.55, hemoglobin 8.7, hematocrit 28.2, platelets 133. Sodium 132, potassium 3.9, chloride 95, CO2 of 22, BUN 31, creatinine 6.62. TELEMETRY: Normal sinus rhythm. IMPRESSION: 1. Orthostatic hypotension. 2. Syncope, likely secondary to above. 3. Coronary artery disease. 4. End-stage renal disease, on hemodialysis. 5. History of renal transplant. RECOMMENDATIONS: The patient remains orthostatic. Continue to hold antihypertensive therapy. Check orthostatic pressures daily. Volume management per Nephrology given end-stage renal disease, on hemodialysis. Carotid Doppler and echocardiogram have been ordered. We will review the images. Monitor the patient closely on telemetry. He had recent cardiac evaluation earlier this year. No further cardiac evaluation is indicated at this time. Thank you for this consult. We will continue to follow. Alla Dodge MD ABS/MODL /[id number]
--- NOTE | 2019-01-30 20:02 | NUR ---
Bedside report given to JERONIMO Abdi maintenance technician 2nd shift at this time.
--- NOTE | 2019-01-30 20:05 | NUR ---
Received patient awake on bed, not in distress, family members at bedside, no complaints of pain at this time, call light within easy reach, advised to call for assistance when needed.
--- NOTE | 2019-01-30 20:09 | NUR ---
spoke to Dominga MÁRQUEZ to follow up regarding patient's EEG awake and drowsy order, per above RT, the commercial hvac service technician comes in the morning during office hours, will follow up in the morning
[2019-01-30] MEDS: BACLOFEN 10 MG TAB PO PRN (20:20)
[2019-01-30] MEDS ORDERED: ONDANSETRON HCL 4 MG ORAL DISINTEGRATING TAB PO PRN (22:00)
[2019-01-31 04:00] VITALS: BP 159/89
--- NOTE | 2019-01-31 04:35 | NUR ---
Tasneem REEDER came with orders
[2019-01-31 06:31] LABS: BASOPHILS % 0.2 % (0.0-1.0); EOSINOPHILS % 0.7 % (0.0-6.0); HEMATOCRIT 29.9 % (38.2-49.6); HEMOGLOBIN 9.3 g/dL (14.0-18.0); LYMPHOCYTES # (AUTO) 0.8 (1.0-3.2); LYMPHOCYTES % 20.8 % (18.0-39.1); MEAN CORPUSCULAR HEMOGLOBIN 29.2 pg (28-32); MEAN CORPUSCULAR HGB CONC 31.1 g/dL (31-35); MEAN CORPUSCULAR VOLUME 93.7 fL (81-99); MONOCYTES # (AUTO) 0.5 (0.2-0.8); MONOCYTES % 12.1 % (4.4-11.3); NEUTROPHILS # (AUTO) 2.6 (2.1-6.9); NEUTROPHILS % 65.2 % (38.7-80.0); PLATELET COUNT 134 x10e3/uL (140-360); RED BLOOD COUNT 3.19 x10e6/uL (4.3-5.7); RED CELL DISTRIBUTION WIDTH 15.6 % (11.7-14.4)
[2019-01-31 06:56] LABS: CALCIUM 9.8 mg/dL (8.4-10.2); CREATININE, SERUM 4.33 mg/dL (0.72-1.25)
--- NOTE | 2019-01-31 07:12 | NUR ---
patient awake on bed, not in distress, no complaints of pain at this time, call light within easy reach, advised to call for assistance when needed. call light in reach.
--- NOTE | 2019-01-31 07:12 | NUR ---
walking rounds done, communicated with incoming nurse to relay result to PROJECTOR BOOTH OPERATOR and make sure EEG will be done today
[2019-01-31] MEDS: SEVELAMER CARBONATE 800 MG TAB PO SCH ×3 (07:30→16:52)
[2019-01-31] MEDS: FAMOTIDINE 20 MG TAB PO SCH ×2 (07:30→16:52)
[2019-01-31 08:08] VITALS: BP 151/92
[2019-01-31 08:40] VITALS: BP 151/92
[2019-01-31] MEDS: MYCOPHENOLATE MOFETIL 250 MG CAP PO SCH (09:00)
[2019-01-31] MEDS: ASPIRIN 81 MG CHEW TAB PO SCH (09:00)
[2019-01-31] MEDS: METOPROLOL TARTRATE 50 MG TAB PO SCH ×2 (09:00→16:53)
[2019-01-31] MEDS: PREDNISONE 5 MG TAB PO SCH (09:00)
[2019-01-31] MEDS: INSULIN REGULAR, HUMAN 100 UNIT/1 ML 3ML VIAL SQ SCH ×3 (09:43→16:30)
--- NOTE | 2019-01-31 09:50 | NUR ---
EEG done at bedside.
--- NOTE | 2019-01-31 11:00 | NUR ---
Dr. Dozier here to see pt.
[2019-01-31 11:55] VITALS: BP 150/99
[2019-01-31 12:03] VITALS: BP_SYST 115; BP_SYST 98; BP_DIAS 63; BP_DIAS 81
[2019-01-31] MEDS ORDERED: HYDRALAZINE HCL 25 MG TAB PO SCH (15:00)
[2019-01-31 16:29] VITALS: BP 144/94
--- NOTE | 2019-01-31 17:10 | NUR ---
Dr. Chaves here to pt.
--- NOTE | 2019-01-31 17:49 | Progress Note ---
DATE: 01/31/2019 Cardiology Progress Note SUBJECTIVE: The patient denies chest pain or shortness of breath. Denies lightheadedness. OBJECTIVE: VITAL SIGNS: Temperature 97.6 degrees, pulse 76, respiratory rate 17, blood pressure 151/107, and oxygen saturation 99% on room air. GENERAL: Awake, alert, in no acute distress. LUNGS: Clear to auscultation bilaterally. No wheezes or crackles. CARDIOVASCULAR: Normal rate, regular rhythm. No murmur. Normal S1 and S2. ABDOMEN: Soft and nontender. EXTREMITIES: No edema. CARDIAC MEDICATIONS: 1. Metoprolol 25 mg p.o. b.i.d. 2. Aspirin 81 mg p.o. daily. LABORATORY DATA: WBC 4.04, hemoglobin 9.3, hematocrit 29.9, and platelets 134. Sodium 138, potassium 4, chloride 101, CO2 of 25, BUN 14, and creatinine 4.33. TELEMETRY: Sinus tachycardia. IMPRESSION: 1. Orthostatic hypotension. 2. Syncope, likely secondary to above. 3. Coronary artery disease. 4. End-stage renal disease, on hemodialysis. 5. History of renal transplant. RECOMMENDATIONS: The patient remained orthostatic today. Continue to hold antihypertensive therapies and check orthostatic pressures daily. The patient is mildly hypertensive while supine, but continues to become hypotensive upon standing, would permit supine hypertension given his continued orthostatic hypotension. Monitor the patient closely on telemetry. The patient had recent cardiac evaluation earlier this year. No further cardiac evaluation is indicated at this time. Thank you for this consult. We will continue to follow. Alla Dodge MD ABS/MODL /[id number]
--- NOTE | 2019-01-31 18:34 | Electroencephalogram ---
DATE OF STUDY: 01/31/2019 REQUESTING PHYSICIAN: REQUESTING PHYSICIAN: Anni Chaves MD. PATIENT HISTORY: This 48-year-old man with past medical history of hypertension and end-stage renal disease, admitted with syncope versus seizure, is undergoing an EEG for evaluation of epileptiform activity. At present, the patient is not taking any medications which might affect the EEG. TECHNIQUE: This is a routine, portable EEG, recorded digitally, using the International 10/20 electrode placement system, and done in the inpatient setting with the patient awake. Greater than 50% of this study cannot be interpreted secondary to muscle and electrical artifact. FINDINGS: Well-organized, well-sustained, 7-8 hertz activity is best seen symmetrically over the posterior head regions. No focal or epileptiform activity is recorded. Sleep is not recorded. Photic stimulation does not produce a driving response. Hyperventilation is not performed. INTERPRETATION: This is an abnormal EEG due to diffuse slowing of background electrocortical activity compatible with a mild generalized encephalopathy. No epileptiform discharges are seen. Clinical correlation is recommended. Anni Chaves MD CP/MODL /[id number]
--- NOTE | 2019-01-31 19:00 | NUR ---
pt discharged home, resp even and unlabored no s/s of distress noted ,pt was given information on her diagnoses, pt and family members were educated on medications, pt iv was removed no swelling no redness to site.
--- NOTE | 2019-02-01 05:12 | Discharge Summary ---
ADMISSION DIAGNOSES: 1. Syncope. 2. End-stage renal disease. 3. Hypertension with end-stage renal disease. 4. History of myocardial infarction. 5. History of kidney transplant, possible seizures. DISCHARGE DIAGNOSES: 1. Syncope. 2. End-stage renal disease. 3. Hypertension with end-stage renal disease. 4. History of myocardial infarction. 5. History of kidney transplant, possible seizures. 6. Rule out seizure. 7. Rule out cerebrovascular accident. 8. Rule out transient ischemic attack. 9. Orthostasis due to multiple blood pressure medication. HISTORY: GERD, hypertension, HI, end-stage renal disease. SURGICAL HISTORY: Kidney transplant. FAMILY HISTORY: Noncontributory. SOCIAL HISTORY: The patient admits to quitting tobacco use about a year and half ago. HOSPITAL COURSE: A 48-year-old male, admits with syncope at 3:00 a.m. today while using the restroom. He got dizzy and tired and try to sit still, but he passed out. His heard him and said he was unconscious for a few minutes. When he fell, his head was resting up against the trash can. When his found him, his eyes rolled to the back of his head and he had jerking movements, which she described as a possible seizure. He has had multiple episodes of this Wednesday happened after dialysis and in December 2018 it happened and he had a workup at [facility], but they said it was due to rhabdo. On admission, CT of the brain was negative. Chest x-ray was negative. MRI of the brain was negative. Neuro was consulted, who ordered an EEG. Cardiology was consulted. The patient's orthostatic vitals were positive. Multiple medications were discontinued. He was left with metoprolol, but the dose was reduced. Echo showed an EF of 65% to 70%. Bilateral carotid Doppler showed evidence of carotid disease without significant stenosis. Blood pressure continued to improve off multiple medications. EKG was normal sinus rhythm. EEG was negative per Neurology report. The patient will discharge home with new prescriptions for metoprolol tartrate 25 mg p.o. b.i.d. He will follow up with Neurology if anything similar to a seizure heard again. The patient is feeling better and ready to discharge home. He will follow up with primary care and Neurology. The patient and understand discharge instructions and agrees to plan. They were instructed to change positions slowly and take his time when standing up. The patient understands instructions and agrees to plan. Dictated by Tasneem Nolasco, COMMERCIAL LOAN ANALYST MD FRANKI Smith/MODL /[id number]
[2019-02-01] MEDS ORDERED: ROPINIROLE HCL 1 MG TAB PO SCH (09:00)
== END 2019-01-31 19:00 | disposition home or self-care (01) ==
LOC: ER 03:03 → INTOOBSV 05:56 → ERHOLD 05:56 → MED/SURG 07:40
PROVIDERS: ADMIT Internal Medicine; ATTEND Internal Medicine
DX: I95.2 Hypotension due to drugs (principal); K21.9 Gastro-esophageal reflux disease without esophagitis; I12.0 Hypertensive chronic kidney disease with stage 5 chronic kidney disease or end stage renal disease; N18.6 End stage renal disease; Z99.2 Dependence on renal dialysis; Z94.0 Kidney transplant status; I25.2 Old myocardial infarction; W01.198A Fall on same level from slipping, tripping and stumbling with subsequent striking against other object, initial encounter; Y93.89 Activity, other specified; Y92.012 Bathroom of single-family (private) house as the place of occurrence of the external cause; N17.9 Acute kidney failure, unspecified; D63.1 Anemia in chronic kidney disease; Z79.899 Other long term (current) drug therapy; I25.10 Atherosclerotic heart disease of native coronary artery without angina pectoris; Z82.49 Family history of ischemic heart disease and other diseases of the circulatory system; Z83.3 Family history of diabetes mellitus; Z87.891 Personal history of nicotine dependence; G25.81 Restless legs syndrome
CPT/HCPCS: 36415 ×3; 70450; 70551; 71045; 80048 ×3; 80053; 80061; 81001; 82550; 82553; 82948 ×3; 83036; 83735; 84443; 84484; 85025 ×3; 87340; 90935; 92610; 93005; 93306; 93880; 95816; 97116; 97161; 99284; G0378 ×3; J1817; J7030; J7512 ×3; J7517 ×3

== ENCOUNTER → 2019-02-28 | Day surgery (SDC) | payer BC ==
[2019-02-24 12:47] LABS: BASOPHILS % 0.3 % (0.0-1.0); EOSINOPHILS # (AUTO) 0.1 (0.0-0.4); EOSINOPHILS % 0.9 % (0.0-6.0); HEMATOCRIT 35.3 % (38.2-49.6); HEMOGLOBIN 11.2 g/dL (14.0-18.0); LYMPHOCYTES # (AUTO) 1.2 (1.0-3.2); LYMPHOCYTES % 15.9 % (18.0-39.1); MEAN CORPUSCULAR HEMOGLOBIN 29.8 pg (28-32); MEAN CORPUSCULAR HGB CONC 31.7 g/dL (31-35); MEAN CORPUSCULAR VOLUME 93.9 fL (81-99); MONOCYTES # (AUTO) 0.7 (0.2-0.8); MONOCYTES % 9.5 % (4.4-11.3); NEUTROPHILS # (AUTO) 5.7 (2.1-6.9); NEUTROPHILS % 72.9 % (38.7-80.0); PLATELET COUNT 138 x10e3/uL (140-360); RED BLOOD COUNT 3.76 x10e6/uL (4.3-5.7); RED CELL DISTRIBUTION WIDTH 15.7 % (11.7-14.4)
[2019-02-24 13:05] LABS: ALBUMIN 3.3 g/dL (3.5-5.0); ALBUMIN/GLOBULIN RATIO 0.9 (0.8-2.0); ANION GAP 17.4 mmol/L (8-16); CREATININE, SERUM 3.81 mg/dL (0.72-1.25); POTASSIUM 4.4 mmol/L (3.5-5.1)
--- NOTE | 2019-02-24 16:12 | NUR ---
Dr. Clark notified of abnormal labs: BUN 38, creatinine 3.81 and eGFR 17. No new orders at this time.
[2019-02-28] VITALS (10 sets, daily range): BP systolic 128–158; BP diastolic 78–96
[~2019-02-28] VITALS: Ht 177.8 cm; Wt 93.9 kg
[~2019-02-28] MED LIST changes: +ALPRAZOLAM 0.5 MG TAB ONE; +DIPHENHYDRAMINE HCL 25 MG CAP ONE; +FENTANYL CITRATE/PF 100MCG/2 ML INJ ONE; +HEPARIN SOD (PORCINE) 1000 UNIT/ML 30ML ONE; +HEPARIN SOD/SOD CHLORIDE 2,000 ML ONE; +IOPAMIDOL 370 MG/ML 200 ML INFUS..BTL INJ ONE; +LABETALOL HCL200 MG PO; +LIDOCAINE HCL 2% LOCAL 20 ML VIAL ONE; +MIDAZOLAM HCL 2 MG/2 ML VIAL ONE; +MULTIPLE VITAM1 EAC2 PO; +MYCOPHENOLATE250 MG PO; +PANTOPRAZOLE SO40 MG PO; +RANEXA500 MG PO; +RENAGEL800 MG PO; +SODIUM CHLORIDE 0.9% 1000ML 1,000 ML ONE; +TACROLIMUS1 MG PO; +VASCEPA1 GM PO
--- NOTE | 2019-02-28 09:00 | NUR ---
0900pt in #7, prepped for procedure. Alert oriented and appropriate, PERRLA, respirations even and unlabored to room air. Pulses x4 extremities equal and faint. Pedal pulses PT/DP weak to nonexistent and marked. Cap fill brisk < 3 sec. bilateral feet semi cool and pale. [facility] scheduled approach rt TR band Positive Allens. Preop Benadryl 50po and Xanax 0.5mg. at bedside.Denies CP or SOB pt workup due abnormal stress test. Pt active renal pt has intact dry rt sc permacath scheduled for Hd Wed 4pm tomorrow.HX FALL (passout)bathroom one month ago alert band on. Skin warm and dry integrity appears intact in general. IV 0.9 Ns #[id number]. Clamped pr started and presents healthy w/o s/s of infiltration or complaint. Abdomen soft and supple. pt offered toileting, denies need to urinate or defecate. Personal affects with patient. Family at bedside. Pt and family verbalizes understanding of POC. bed low and locked, side rails up x2 and call light at side. -ds/rn
--- NOTE | 2019-02-28 09:30 | NUR ---
0930 Ready for procedure with Preop meds given and iv 20 to left hand clamped 1000cc NS handing at bedside. at bedside aware to call for assistance bed in low position and call light side rails up. Denies Cp or SOB in NSR.
--- NOTE | 2019-03-01 09:25 | Operative Report ---
DATE OF PROCEDURE: 02/28/2019 SURGEON: Jay Clark MD INDICATION: Coronary artery disease. PROCEDURES PERFORMED: 1. Left heart catheterization, selective coronary angiography. 2. Deployment of right wrist TR band. COMPLICATIONS: None. RECOMMENDATIONS: Medical therapy. DESCRIPTION OF PROCEDURE: Access obtained in the right radial artery. A 5-Bengali sheath was placed. Coronary angiography demonstrated complete occlusion of the right coronary artery with grade 4 collateral supply in the right posterior descending artery from the left coronary system. Circumflex, left anterior descending, and left main coronary arteries had mild disease. Proximal diagonal 70% stenosis. LV end-diastolic pressure of 18. No gradient across the aortic valve on pullback. No intervention deemed necessary. Right wrist TR band applied. The patient discharged home same day. Jay Clark MD KSB/MODL /[id number]
== END | disposition home or self-care (01) ==
LOC: CATH LAB 07:59
PROVIDERS: ATTEND Internal Medicine Interventional Cardiology
DX: I25.10 Atherosclerotic heart disease of native coronary artery without angina pectoris (principal); R00.2 Palpitations; I13.0 Hypertensive heart and chronic kidney disease with heart failure and stage 1 through stage 4 chronic kidney disease, or unspecified chronic kidney disease; N18.3 Chronic kidney disease, stage 3 (moderate); I50.9 Heart failure, unspecified; E11.22 Type 2 diabetes mellitus with diabetic chronic kidney disease; Z01.812 Encounter for preprocedural laboratory examination; Z99.2 Dependence on renal dialysis; Z94.0 Kidney transplant status; Z79.82 Long term (current) use of aspirin; Z79.84 Long term (current) use of oral hypoglycemic drugs; Z82.49 Family history of ischemic heart disease and other diseases of the circulatory system; Z84.1 Family history of disorders of kidney and ureter
CPT/HCPCS: 36415; 80053; 85025; 93458; C1769; C1887; J1644; J2001; J2250; J3010; J7030; Q9967